=== PATIENT | male | born 2000 | race Caucasian/White ===

== ENCOUNTER 2023-09-01 16:59 | Emergency (ER) | payer OTHER, SELFPAY ==
[2023-09-01 17:07] VITALS: BP 129/82
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
[2023-09-01] MEDS: LET TOPICAL ANESTHETIC GEL 3 ML TOPICAL (18:41)
[2023-09-01 19:40] VITALS: BP 106/75
== END 2023-09-01 19:40 | disposition home or self-care (01) ==
LOC: EMR 16:59
PROVIDERS: EMERGENCY PHYSICIAN Emergency Medicine; FAMILY PHYSICIAN Nurse Practitioner Family
DX: S01.511A Laceration without foreign body of lip, initial encounter (principal); V18.0XXA Pedal cycle driver injured in noncollision transport accident in nontraffic accident, initial encounter; Y93.55 Activity, bike riding
CPT/HCPCS: 12051; 99282

== ENCOUNTER → 2024-01-30 15:58 | Outpatient (REF) | payer OTHER, SELFPAY | LOC: HWRAD 15:58 | PROVIDERS: ATTENDING PHYSICIAN Nurse Practitioner Family | DX: Z02.5 Encounter for examination for participation in sport (principal) | CPT/HCPCS: 71046 ==